=== PATIENT | male | born 1985 | race Two or more races ===

== ENCOUNTER 2023-12-30 09:00 | Day surgery (SDC) | payer OTHER ==
[2023-12-22 11:55] LABS: HEMATOCRIT 34.2 % (39.0-48.0); HEMOGLOBIN 10.5 g/dL (13-16.00); MEAN CELL VOLUME 74.2 fL (80.0-100.00); MEAN CORPUSCULAR HEMOGLOBIN 22.9 pg (27.00-32.0); MEAN CORPUSCULAR HGB CONC 30.8 g/dl (32.0-36.0); PLATELET COUNT 185 K/uL (150-450); RED BLOOD COUNT 4.61 M/uL (4.00-6.00); RED CELL DISTRIBUTION WIDTH 19.1 % (11.5-14.5)
[2023-12-22 11:55] LABS: PH,URINE 5.5 (5.0-8.0); URINE APPEARANCE Clear; URINE BILIRRUBIN Negative (NEGATIVE); URINE BLOOD Negative; URINE COLOR Yellow; URINE GLUCOSE Negative (NEGATIVE); URINE LEUKOCYTE Negative; URINE NITRATE Negative; URINE PROTEIN Negative (NEGATIVE); URINE UROBILINOGEN 0.2 E.U./dl
[2023-12-22 11:56] LABS: URINE WBC 2.6 uL (0.0-23.2)
[2023-12-22 12:00] LABS: URINE BACTERIA 0 uL (0.0-1933); URINE EPITHELIAL CELLS 0.7 uL (0.0-38.8)
[2023-12-22 12:19] LABS: INR 1.08; PARTIAL THROMBOPLASTIN TIME 25.5 SECONDS (22.0-34.0); PROTHROMBIN TIME 11.3 SECONDS (9.0-11.5)
[2023-12-22 13:30] LABS: ALBUMIN 4.2 gm/dL (3.4-5.0); BILIRUBIN TOTAL 0.39 mg/dL (0.3-1.2); CALCIUM 9.7 mg/dL (8.5-10.1); CREATININE SERUM 1.06 mg/dL (0.70-1.30); GFR 77.38; GLOBULINA 4.1 G/DL (2.4-3.5); POTASSIUM 4.56 mEq/L (3.5-5.1); TOTAL PROTEIN 8.3 gm/dL (6.4-8.2)
[~2023-12-30] VITALS: Ht 188 cm; Wt 105.2 kg
[2023-12-30] MEDS ORDERED: CEFTRIAXONE SODIUM 2,000 MG VIAL ONE (12:23)
[2023-12-30] MEDS ORDERED: METRONIDAZOLE/SODIUM CHLORIDE 500 MG/100 ML PIGGYBACK IV ONE (12:23)
[2023-12-30] MEDS ORDERED: TAMSULOSIN HCL 0.4 MG CAP PO ONE ×2 (13:45→16:34)
[2023-12-30] MEDS ORDERED: LIDOCAINE HCL 1%/EPINEPHRINE 20ML VIAL IJ ONE (14:26)
[2023-12-30] MEDS ORDERED: DIBUCAINE 30 GM TUBE ONE (14:26)
[2023-12-30] MEDS ORDERED: HEMOSTATIC MATRIX 1 KIT KIT TOP ONE ×2 (14:26→15:23)
[2023-12-30] MEDS ORDERED: POVIDONE-IODINE 118 ML BOTT TOP ONE (14:26)
[2023-12-30] MEDS ORDERED: BUPIVACAINE HCL/Mpf 0.5% 10ML VIAL ONE (14:26)
[2023-12-30] MEDS ORDERED: OXYC1TAB9 PO (15:30)
== END 2023-12-30 20:45 | disposition home or self-care (01) ==
LOC: CIR.AMB 09:00
PROVIDERS: ATTEND Surgery
DX: K64.2 Third degree hemorrhoids (principal); K64.4 Residual hemorrhoidal skin tags; K64.8 Other hemorrhoids; K62.5 Hemorrhage of anus and rectum; K62.89 Other specified diseases of anus and rectum; D50.9 Iron deficiency anemia, unspecified; R00.1 Bradycardia, unspecified; D64.9 Anemia, unspecified